=== PATIENT | female | born 1980 | race Caucasian/White ===

== ENCOUNTER 2020-09-14 20:34 | Emergency (ER) | payer SELFPAY ==
--- OUTSIDE RECORDS SUMMARY | 2020-09-14 20:37 | XMS REPORT | Continuity of Care Document ---
:1980 Author Organization [facility] t Address [address] [place] [address] Dr. Butler [address] [place] [address] Care Team Providers Name Role Phone Provider, Urgent Care Attending Clinician Unavailable Doctor Unassigned, Name Attending Clinician Unavailable Problems This patient has no known problems. Allergies, Adverse Reactions, Alerts This patient has no known allergies or adverse reactions. Medications This patient has no known medications. Procedures This patient has no known procedures. Encounters Start End Encounter Admission Attending Care Care Encounter Source Date/Time Date/Time Type Type Clinicians Facility Department ID 2020-08-30 2020-08-30 Urgent Provider, [facility] [id number] 20:20:43 21:04:22 Care [facility] [id number] Care [place] [id number] Ever [id number] nal 0[address] 2020-08-30 2020-08-30 Orders Doctor ARACELI [id number] 30 00:00:00 00:00:00 Only Unassigned, BUCK [id number] [place] [facility] [id number] Results This patient has no known results.
--- NOTE | 2020-09-14 21:50 | ER ---
Nurse's Notes [facility] Name: Nancy Lang Age: 39 yrs Sex: Female : 1980 Arrival Date: 09/14/2020 Time: 20:36 Bed 29 Private MD: Diagnosis: Urticaria, unspecified;Rash and other nonspecific skin eruption Presentation: 09/14 20:48 Chief complaint: Patient states: Hives all over, noticed around 1700 today. Denies ca1 difficulty breathing, denies difficulty swallowing. Benadryl taken at 1800. Coronavirus screen: Client denies travel out of the [place] in the last 14 days. cough unrelated to allergies, Client presents with at least one sign or symptom that may indicate coronavirus-19. Standard/surgical mask placed on the client. Provider contacted for isolation considerations. Ebola Screen: Patient negative for fever greater than or equal to 101.5 degrees Fahrenheit, and additional compatible Ebola Virus Disease symptoms Patient denies exposure to infectious person. Patient denies travel to an Ebola-affected area in the 21 days before illness onset. No symptoms or risks identified at this time. Initial Sepsis Screen: Does the patient meet any 2 criteria? No. Patient's initial sepsis screen is negative. Does the patient have a suspected source of infection? No. Patient's initial sepsis screen is negative. Risk Assessment: Do you want to hurt yourself or someone else? Patient reports no desire to harm self or others. Onset of symptoms was September 14, 2020 at 17:00. 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 Flu vaccine is not up to date. - Social history:: Smoking status: Patient denies any tobacco usage or history of. Screenin:40 Abuse screen: Denies threats or abuse. Denies injuries from another. Nutritional ca1 screening: No deficits noted. Tuberculosis screening: No symptoms or risk factors identified. Fall Risk None identified. Assessment: 21:40 General: Appears in no apparent distress. comfortable, Behavior is calm, cooperative, ca1 appropriate for age. Pain: Denies pain. Neuro: Level of Consciousness is awake, alert, obeys commands, Oriented to person, place, time, situation. Respiratory: Airway is patent Respiratory effort is even, unlabored, Respiratory pattern is regular, symmetrical, Breath sounds are clear bilaterally. Derm: Skin is intact, is healthy with good turgor, Skin is pink, warm \T\ dry. Rash noted that is urticaria, on back, buttocks, chest and abdomen. Musculoskeletal: Circulation, motion, and sensation intact. Capillary refill < 3 seconds. Vital Signs: 20:48 BP 173 / 107; Pulse 98; Resp 14; Temp 98.1; Pulse Ox 99% on R/A; Weight 111.13 kg (R); ca1 Height 5 ft. 6 in. (167.64 cm) (R); Pain 0/10; 20:48 Body Mass Index 39.54 (111.13 kg, 167.64 cm) ca1 ED Course: 20:36 Patient arrived in ED. cf2 20:52 Triage completed. ca1 20:52 Arm band placed on right wrist. ca1 21:29 Dillon Martin MD is Attending Physician. susu 21:40 Nori Ricardo, GABRIELA is Primary Nurse. ca1 21:40 Patient has correct armband on for positive identification. ca1 21:40 No provider procedures requiring assistance completed. Patient did not have IV access ca1 during this emergency room visit. Administered Medications: 21:35 Drug: Pepcid (famotidine) 40 mg Route: PO; ca1 22:12 Follow up: Response: No adverse reaction em 21:36 Drug: predniSONE 60 mg Route: PO; ca1 22:12 Follow up: Response: No adverse reaction em 21:40 Drug: Benadryl (diphenhydrAMINE) 50 mg Route: IM; Site: right gluteus; ca1 22:12 Follow up: Response: No adverse reaction em Outcome: 21:50 Discharge ordered by . susu 22:13 Discharged to home ambulatory. em 22:13 Condition: good 22:13 Discharge instructions given to patient, Instructed on discharge instructions, follow up and referral plans. medication usage, Demonstrated understanding of instructions, follow-up care, medications, Prescriptions given X 4. 22:13 Patient left the ED. em Signatures: Dillon Martin MD MD cha Munoz, Edgar, RN RN em Nori Ricardo RN RN ca1 [place] 2 Corrections: (The following items were deleted from the chart) 20:52 20:52 PSHx: None; ca1 ca1
--- NOTE | 2020-09-14 21:51 | EDPHYS ---
Physician Documentation [facility] Name: Nancy Lang Age: 39 yrs Sex: Female : 1980 Arrival Date: 09/14/2020 Time: 20:36 Bed 29 Private MD: ED Physician Dillon Martin HPI: 09/14 21:44 This 39 yrs old Female presents to ER via Ambulatory with complaints of susu Allergic Reaction. 21:44 The patient presents with rash, redness of skin. Onset: The symptoms/episode susu began/occurred today. Associated signs and symptoms: Pertinent positives: hives. Possible causes: The patient has no known obvious cause for the symptoms. At home the patient or guardian has treated the symptoms with nothing. Severity of symptoms: At their worst the symptoms were mild moderate in the emergency department the symptoms have improved mildly. The patient has not experienced similar symptoms in the past. 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 Flu vaccine is not up to date. - Social history:: Smoking status: Patient denies any tobacco usage or history of. ROS: 21:46 Constitutional: Negative for fever, chills, and weight loss, Eyes: Negative for injury, susu pain, redness, and discharge, ENT: Negative for injury, pain, and discharge, Neck: Negative for injury, pain, and swelling, Cardiovascular: Negative for chest pain, palpitations, and edema, Respiratory: Negative for shortness of breath, cough, wheezing, and pleuritic chest pain, Abdomen/GI: Negative for abdominal pain, nausea, vomiting, diarrhea, and constipation, Back: Negative for injury and pain, : Negative for injury, bleeding, discharge, and swelling, MS/Extremity: Negative for injury and deformity, Neuro: Negative for headache, weakness, numbness, tingling, and seizure, Psych: Negative for depression, anxiety, suicide ideation, homicidal ideation, and hallucinations, Allergy/Immunology: Negative for hives, rash, and allergies, Endocrine: Negative for neck swelling, polydipsia, polyuria, polyphagia, and marked weight changes, Hematologic/Lymphatic: Negative for swollen nodes, abnormal bleeding, and unusual bruising. 21:46 Skin: Positive for rash. Exam: 21:46 Constitutional: This is a well developed, well nourished patient who is awake, alert, susu and in no acute distress. Head/Face: Normocephalic, atraumatic. Eyes: Pupils equal round and reactive to light, extra-ocular motions intact. Lids and lashes normal. Conjunctiva and sclera are non-icteric and not injected. Cornea within normal limits. Periorbital areas with no swelling, redness, or edema. ENT: Nares patent. No nasal discharge, no septal abnormalities noted. Tympanic membranes are normal and external auditory canals are clear. Oropharynx with no redness, swelling, or masses, exudates, or evidence of obstruction, uvula midline. Mucous membranes moist. Neck: Trachea midline, no thyromegaly or masses palpated, and no cervical lymphadenopathy. Supple, full range of motion without nuchal rigidity, or vertebral point tenderness. No Meningismus. Chest/axilla: Normal chest wall appearance and motion. Nontender with no deformity. No lesions are appreciated. Cardiovascular: Regular rate and rhythm with a normal S1 and S2. No gallops, murmurs, or rubs. Normal PMI, no JVD. No pulse deficits. Respiratory: Lungs have equal breath sounds bilaterally, clear to auscultation and percussion. No rales, rhonchi or wheezes noted. No increased work of breathing, no retractions or nasal flaring. Abdomen/GI: Soft, non-tender, with normal bowel sounds. No distension or tympany. No guarding or rebound. No evidence of tenderness throughout. Back: No spinal tenderness. No costovertebral tenderness. Full range of motion. Female : Normal external genitalia. MS/ Extremity: Pulses equal, no cyanosis. Neurovascular intact. Full, normal range of motion. Neuro: Awake and alert, GCS 15, oriented to person, place, time, and situation. Cranial nerves II-XII grossly intact. Motor strength 5/5 in all extremities. Sensory grossly intact. Cerebellar exam normal. Normal gait. Psych: Awake, alert, with orientation to person, place and time. Behavior, mood, and affect are within normal limits. 21:46 Skin: Appearance: Color: normal in color, pink, Temperature: normal temperature, warm, Moisture: normal moisture, petechiae, not noted, ecchymosis, not noted, flushing, not noted, diaphoresis is not appreciated, swelling, is not appreciated. Vital Signs: 20:48 BP 173 / 107; Pulse 98; Resp 14; Temp 98.1; Pulse Ox 99% on R/A; Weight 111.13 kg (R); ca1 Height 5 ft. 6 in. (167.64 cm) (R); Pain 0/10; 20:48 Body Mass Index 39.54 (111.13 kg, 167.64 cm) ca1 MDM: 21:37 Patient medically screened. susu 21:47 Differential diagnosis: anaphylaxis, angioedema, urticaria. Data reviewed: vital signs, susu nurses notes. Data interpreted: custodial services manager: not applicable for this patient encounter. rate is 98 beats/min, rhythm is regular, Pulse oximetry: on room air is 99 %. Test interpretation: by ED physician or midlevel provider:. Counseling: I had a detailed discussion with the patient and/or guardian regarding: the historical points, exam findings, and any diagnostic results supporting the discharge/admit diagnosis, the need for outpatient follow up, for definitive care, an allergy/senior medical billing specialist, a family practitioner. Administered Medications: 21:35 Drug: Pepcid (famotidine) 40 mg Route: PO; ca1 22:12 Follow up: Response: No adverse reaction em 21:36 Drug: predniSONE 60 mg Route: PO; ca1 22:12 Follow up: Response: No adverse reaction em 21:40 Drug: Benadryl (diphenhydrAMINE) 50 mg Route: IM; Site: right gluteus; ca1 22:12 Follow up: Response: No adverse reaction em Disposition Summary: 09/14/20 21:50 Discharge Ordered Location: Home susu Problem: new susu Symptoms: have improved susu Condition: Stable susu Diagnosis - Urticaria, unspecified susu - Rash and other nonspecific skin eruption susu Followup: susu - With: Private Physician - When: 2 - 3 days - Reason: Recheck today's complaints, Continuance of care, Re-evaluation by your physician Discharge Instructions: - Discharge Summary Sheet susu - Hives susu - Rash, Adult susu - Rash, Adult, [id number] susu - Allergies, Adult, [id number] susu Forms: - Medication Reconciliation Form susu - Thank You Letter susu - Antibiotic Education [facility] - Prescription Opioid Use [facility] Prescriptions: - EpiPen 0.3 mg/0.3 mL Injection auto-injector - inject 0.3 milliliter by INTRAMUSCULAR route as directed as needed for susu anaphylaxis; 2 Cartridge; Refills: 0, Product Selection Permitted - Benadryl 25 mg Oral Capsule - take 2 capsule by ORAL route every 6 hours As needed; 50 tablet; Refills: 0, [facility] Product Selection Permitted - Pepcid 20 mg Oral Tablet - take 1 tablet by ORAL route every 12 hours for 15 days; 30 tablet; Refills: 0, [facility] Product Selection Permitted - Prednisone 20 mg Oral Tablet - take 2 tablets by ORAL route once daily for 5 days; 10 tablet; Refills: 0, [facility] Product Selection Permitted Signatures: Dillon Martin MD MD [facility] Nori Ricardo RN RN ca1 Juvencio Centeno RN em Corrections: (The following items were deleted from the chart) 20:52 20:52 PSHx: None; ca1 ca1
[2020-09-14] MEDS ORDERED: predniSONE 20 MG TAB ONE (21:55)
[2020-09-14] MEDS ORDERED: DIPHENHYDRAMINE 50 MG/ML VIAL ONE (21:55)
[2020-09-14] MEDS ORDERED: FAMOTIDINE 20 MG TAB ONE (21:56)
[2020-09-14 22:44] VITALS: BP 173/107; TEMP 98.1; O2SAT 99
== END 2020-09-14 22:13 | disposition home or self-care (01) ==
LOC: ER 20:34
DX: L50.9 Urticaria, unspecified (principal)
CPT/HCPCS: 96372; 99283; J1200; J7512

== ENCOUNTER 2020-09-24 09:42 | Emergency (ER) | payer SELFPAY ==
--- OUTSIDE RECORDS SUMMARY | 2020-09-24 09:44 | XMS REPORT | Continuity of Care Document ---
:1980 Author Organization [facility] t Address [address] [place] [address] Dr. Butler [address] [place] [address] Care Team Providers Name Role Phone Provider, [...] Facility Department ID 2020-08-30 2020-08-30 Urgent Provider, [facility] [id number] 20:20:43 21:04:22 Care [facility] [id number] Care [place] [id number] Ever [id number] nal [address] 2020-08-30 2020-08-30 Orders Doctor ARACELI [id number] 00:00:00 00:00:00 Only UnassignedBUCK [id number] [facility] [id number] Results This patient has no known results.
[2020-09-24 10:31] LABS: Urine Blood 2+ (Negative); Urine Glucose Negative (Negative); Urine Protein Negative (Negative); Urine Specific Gravity <=1.005 (1.005-1.030); Urine pH 6.5 (5.0-7.0)
[2020-09-24] MEDS ORDERED: Ringers Lactate 1,000 ML IV ONE (11:48)
[2020-09-24 13:28] LABS: Absolute Lymphocytes (CBC) 1.8 K/uL (0.7-4.9); Basophils % 0.9 % (0-1.3); Hematocrit 41.3 % (36.0-45.0); Lymphocytes % 19.1 % (15.3-44.8); MPV 9.3 fL (7.6-11.3); RBC Red Blood Cell Count 4.69 M/uL (3.86-4.86)
[2020-09-24 16:15] LABS: Protime INR 1.01
[2020-09-24] MEDS ORDERED: LORAZEPAM 1 MG TABLET ONE (17:52)
--- NOTE | 2020-09-24 20:53 | ER ---
Nurse's Notes [facility] Name: Nancy Lang Age: 39 yrs Sex: Female : 1980 Arrival Date: 09/24/2020 Time: 09:43 Bed 16 Private MD: Diagnosis: Chest pain, unspecified;Upper abdominal pain, unspecified;Other specified anxiety disorders Presentation: 09/24 09:48 Chief complaint: Epigastric pressure that radiates to mid chest and hot flashes since hb this morning. Denies SOB/nausea. Coronavirus screen: At this time, the client does not indicate any symptoms associated with coronavirus-19. Ebola Screen: No symptoms or risks identified at this time. Initial Sepsis Screen: Does the patient meet any 2 criteria? No. Patient's initial sepsis screen is negative. Does the patient have a suspected source of infection? No. Patient's initial sepsis screen is negative. Risk Assessment: Do you want to hurt yourself or someone else? Patient reports no desire to harm self or others. Onset of symptoms was September 24, 2020. 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 - Social history:: Smoking status: Patient denies any tobacco usage or history of. Screenin:46 Abuse screen: Denies threats or abuse. Nutritional screening: No deficits noted. tw2 Tuberculosis screening: No symptoms or risk factors identified. Fall Risk None identified. Assessment: 10:20 General: Appears in no apparent distress. well groomed, Behavior is anxious, Reports "i tw2 just lost my dad and I am having a lot fo stress" , pt tearful at this time. pt encouraged at this time. pt redirectable. Pain: Complains of pain in epigastric area Pain does not radiate. Pain began n/a. Neuro: Level of Consciousness is awake, alert, obeys commands, Oriented to person, place, time, situation. Cardiovascular: Capillary refill < 3 seconds Patient's skin is warm and dry. Respiratory: Airway is patent Respiratory effort is even, unlabored, Respiratory pattern is regular, symmetrical. GI: No signs and/or symptoms were reported involving the gastrointestinal system. : No signs and/or symptoms were reported regarding the genitourinary system. EENT: No signs and/or symptoms were reported regarding the EENT system. Derm: No signs and/or symptoms reported regarding the dermatologic system. Musculoskeletal: Range of motion:. 11:24 Reassessment: provider at bedside at this time. tw2 11:30 Reassessment: Patient appears in no apparent distress at this time. Patient and/or tw2 family updated on plan of care and expected duration. Pain level reassessed. Patient is alert, oriented x 3, equal unlabored respirations, skin warm/dry/pink. 13:43 Reassessment: Patient appears in no apparent distress at this time. Patient and/or tw2 family updated on plan of care and expected duration. Pain level reassessed. Patient is alert, oriented x 3, equal unlabored respirations, skin warm/dry/pink. 17:10 Reassessment: pt refusing serum blood work as iv would not flush. pt states tw2 "theres absolutely no way i could be ", provider notified. 17:26 Reassessment: provider at bedside at this time. tw2 19:14 Reassessment: Patient appears in no apparent distress at this time. Patient and/or jb4 family updated on plan of care and expected duration. Pain level reassessed. Patient is alert, oriented x 3, equal unlabored respirations, skin warm/dry/pink. Pt is peacefully laying in bed talking on the phone. Denies having any needs at this time. 20:16 Reassessment: Patient appears in no apparent distress at this time. Patient and/or jb4 family updated on plan of care and expected duration. Pain level reassessed. Patient is alert, oriented x 3, equal unlabored respirations, skin warm/dry/pink. 21:09 Reassessment: Patient appears in no apparent distress at this time. Patient and/or jb4 family updated on plan of care and expected duration. Pain level reassessed. Patient is alert, oriented x 3, equal unlabored respirations, skin warm/dry/pink. Vital Signs: 09:48 BP 153 / 92; Pulse 88; Resp 16; Temp 97.6; Pulse Ox 100% on R/A; Weight 102.06 kg; hb Height 5 ft. 6 in. (167.64 cm); Pain 2/10; 11:30 BP 124 / 71; Pulse 63; Resp 17; Pulse Ox 100% on R/A; tw2 13:43 BP 124 / 61; Pulse 63; Resp 17; Pulse Ox 99% on R/A; tw2 17:27 BP 151 / 90; Pulse 66; Resp 17; Pulse Ox 100% on R/A; tw2 20:16 BP 129 / 82; Pulse 69; Resp 16; Pulse Ox 100% on R/A; jb4 09:48 Body Mass Index 36.32 (102.06 kg, 167.64 cm) hb ED Course: 09:43 Patient arrived in ED. ds1 09:50 Triage completed. hb 09:50 Arm band placed on. hb 09:52 Dev Gupta PA is PHCP. [facility] 09:53 Dillon Martin MD is Attending Physician. jmm 09:55 Susan Tobin, GABRIELA is Primary Nurse. tw2 09:55 Bed in low position. Call light in reach. equipment monitor phototypesetting on. Pulse ox on. NIBP on. tw2 09:59 Patient maintains SpO2 saturation greater than 95% on room air. tw2 10:20 Inserted saline lock: 20 gauge in right antecubital area, using aseptic technique. tw2 11:39 D-Dimer Sent. tw2 17:12 IV discontinued, intact, bleeding controlled, No redness/swelling at site. Pressure tw2 dressing applied. 17:33 Awaiting lab results. tw2 17:57 PHCP role handed off by Dev Gupta PA kb 17:57 Verónica Thorne FNP-C is PHCP. kb 21:09 No provider procedures requiring assistance completed. jb4 Administered Medications: 11:29 Drug: Lactated Ringers Solution 1000 ml Route: IV; Rate: 1000 bolus; Site: left tw2 antecubital; 13:46 Follow up: Response: No adverse reaction; IV Status: Completed infusion; IV Intake: tw2 1000ml 17:33 Drug: Ativan (LORazepam) 1 mg Route: PO; tw2 19:05 Follow up: Response: No adverse reaction; Anxiety decreased tw2 Intake: 13:46 IV: 1000ml; Total: 1000ml. tw2 Outcome: 20:52 Discharge ordered by MD. rivero 21:09 Discharged to home ambulatory. jb4 21:09 Condition: stable 21:09 Discharge instructions given to patient, Instructed on discharge instructions, follow up and referral plans. medication usage, Demonstrated understanding of instructions, follow-up care, medications, Prescriptions given X 1. 21:09 Patient left the ED. jb4 Signatures: Verónica Thorne, RASHEED BRIGHT-Dev Melendez PA PA Lucero Rodriguez ds1 Lauryn Sosa, RN RN hb Susan Tobin RN RN tw2 Ry Obregon, RN RN jb4 Corrections: (The following items were deleted from the chart) 10:34 09:59 Inserted saline lock: 20 gauge in right antecubital area, using aseptic tw2 technique. tw2
--- NOTE | 2020-09-24 20:53 | EDPHYS ---
Physician Documentation [facility] Name: Nancy Lang Age: 39 yrs Sex: Female : 1980 Arrival Date: 09/24/2020 Time: 09:43 Bed 16 Private MD: STACY Physician Dillon Martin HPI: 09/24 09:56 This 39 yrs old Female presents to ER via Ambulatory with complaints of Chest jmm Pain. 09:56 The patient or guardian reports chest pain that is located primarily in the substernal jmm area, epigastric area. The pain radiates to. Associated signs and symptoms: Pertinent negatives: fever. Is a 39-year-old female with no chronic conditions presents emerged part with complaints of epigastric pain which radiates into the chest. Patient describes it as chest pressure. Denies shortness of breath, vomiting, fever, diarrhea.. 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 - Social history:: Smoking status: Patient denies any tobacco usage or history of. ROS: 09:56 Constitutional: Negative for fever, chills, and weight loss, Respiratory: Negative for jmm shortness of breath, cough, wheezing, and pleuritic chest pain. 09:56 Cardiovascular: Positive for chest pain. 09:56 All other systems are negative. Exam: 09:56 Constitutional: This is a well developed, well nourished patient who is awake, alert, jmm and in no acute distress. Head/Face: atraumatic. Eyes: EOMI, no conjunctival erythema appreciated ENT: Moist Mucus Membranes Neck: Trachea midline, Supple Chest/axilla: Normal chest wall appearance and motion. Cardiovascular: Regular rate and rhythm. No edema appreciated Respiratory: Normal respirations, no respiratory distress appreciated Abdomen/GI: Non distended, soft Back: Normal ROM Skin: General appearance color normal MS/ Extremity: Moves all extremities, no obvious deformities appreciated, no edema noted to the lower extremities Neuro: Awake and alert, normal gait Psych: Behavior is normal, Mood is normal, Patient is cooperative and pleasant Vital Signs: 09:48 BP 153 / 92; Pulse 88; Resp 16; Temp 97.6; Pulse Ox 100% on R/A; Weight 102.06 kg; hb Height 5 ft. 6 in. (167.64 cm); Pain 2/10; 11:30 BP 124 / 71; Pulse 63; Resp 17; Pulse Ox 100% on R/A; tw2 13:43 BP 124 / 61; Pulse 63; Resp 17; Pulse Ox 99% on R/A; tw2 17:27 BP 151 / 90; Pulse 66; Resp 17; Pulse Ox 100% on R/A; tw2 20:16 BP 129 / 82; Pulse 69; Resp 16; Pulse Ox 100% on R/A; jb4 09:48 Body Mass Index 36.32 (102.06 kg, 167.64 cm) hb MDM: 09:56 Patient medically screened. susu 20:52 Data reviewed: vital signs, nurses notes. Data interpreted: Pulse oximetry: on room air kb is 100 %. Interpretation: normal. Counseling: I had a detailed discussion with the patient and/or guardian regarding: the historical points, exam findings, and any diagnostic results supporting the discharge/admit diagnosis, lab results, radiology results, the need for outpatient follow up, a family practitioner, to return to the emergency department if symptoms worsen or persist or if there are any questions or concerns that arise at home. 09/24 10:00 Order name: Basic Metabolic Panel [facility] 09/24 10:20 Order name: CBC with Diff [facility] 09/24 10:20 Order name: LFT's [facility] 09/24 10:20 Order name: Magnesium [facility] 09/24 10:00 Order name: EKG; Complete Time: 10:[address] [facility] 09/24 10:00 Order name: Cardiac monitoring; Complete Time: 10:[address] [facility] 09/24 10:00 Order name: EKG - Nurse/Tech; Complete Time: 12:[address] [facility] 09/24 10:20 Order name: NT PRO-BNP [facility] 09/24 10:20 Order name: PT-INR; Complete Time: 16:22 [facility] 09/24 10:20 Order name: Troponin (emerg Dept Use Only) [facility] 09/24 10:20 Order name: Lipase [facility] 09/24 10:20 Order name: CBC with Automated Diff; Complete Time: 13:40 [facility] 09/24 10:20 Order name: Liver (Hepatic) Function [facility] 09/24 10:31 Order name: Urine Dipstick-Ancillary; Complete Time: 10:34 [facility] 09/24 11:29 Order name: D-Dimer; Complete Time: 13:40 [facility] 09/24 10:00 Order name: IV Saline Lock; Complete Time: 10:[address] [facility] 09/24 10:00 Order name: Labs collected and sent; Complete Time: 10:[address] [facility] 09/24 10:00 Order name: O2 Per Protocol; Complete Time: 10:00 tw2 09/24 10:00 Order name: O2 Sat Monitoring; Complete Time: 10:00 tw2 Administered Medications: 11:29 Drug: Lactated Ringers Solution 1000 ml Route: IV; Rate: 1000 bolus; Site: left tw2 antecubital; 13:46 Follow up: Response: No adverse reaction; IV Status: Completed infusion; IV Intake: tw2 1000ml 17:33 Drug: Ativan (LORazepam) 1 mg Route: PO; tw2 19:05 Follow up: Response: No adverse reaction; Anxiety decreased tw2 Disposition: 09/25 09:02 Co-signature as Attending Physician, Dillon Martin MD I agree with the assessment and susu plan of care. Disposition Summary: 09/24/20 20:52 Discharge Ordered Location: Home kb Condition: Stable kb Diagnosis - Chest pain, unspecified kb - Upper abdominal pain, unspecified kb - Other specified anxiety disorders kb Followup: jmm - With: Private Physician - When: 2 - 3 days - Reason: Recheck today's complaints, Continuance of care, Re-evaluation by your physician Discharge Instructions: - Discharge Summary Sheet jmm - Nonspecific Chest Pain, Adult jmm - Generalized Anxiety Disorder, Adult [facility] Forms: - Medication Reconciliation Form kb - Thank You Letter kb - Antibiotic Education kb - Prescription Opioid Use kb - Work release form eb Prescriptions: - Hydroxyzine HCl 25 mg Oral Tablet - take 1 tablet by ORAL route every 6 hours As needed; 30 tablet; Refills: 0, jmm Product Selection Permitted Signatures: Dispatcher [employer] Verónica Gustafson, KAILA-C KAILA-Dillon Tellez MD MD cha Mickail, Joel, PA PA m Lauryn Sosa, RN RN hb Susan Tobin RN RN tw2 Corrections: (The following items were deleted from the chart) 09/24 10:07 10:01 Basic Metabolic Panel ordered. EDMS EDMS 10:07 10:01 CBC+H.LAB.BRZ ordered. EDMS EDMS 10:08 10:01 HEPATIC FUNCTION+C.LAB.BRZ ordered. EDMS EDMS 10:08 10:01 MAGNESIUM+C.LAB.BRZ ordered. EDMS EDMS 10:08 10:01 PROBNP+C.LAB.BRZ ordered. EDMS EDMS 10:08 10:01 PROTIME (+INR)+COAG.LAB.BRZ ordered. EDMS EDMS 10:08 10:01 TROPONIN (EMERG DEPT USE ONLY)+C.LAB.BRZ ordered. EDMS EDMS 10:08 10:01 LACTATE+C.LAB.BRZ ordered. EDMS EDMS 10:08 10:01 PCT+C.LAB.BRZ ordered. EDMS EDMS 10:08 10:01 BLOOD CULTURE*+BA.LAB.BRZ ordered. EDMS EDMS 10:34 10:21 Abdomen Limited+US.RAD.BRZ ordered. EDMS EDMS 11:19 10:01 Chest Single View+RAD.RAD.BRZ ordered. EDMS EDMS
[2020-09-24 21:34] VITALS: TEMP 97.6
[2020-09-24 21:41] VITALS: O2SAT 100
[2020-09-24 21:43] VITALS: BP 129/82
[2020-09-25 11:13] LABS: Albumin 4.3; Bilirubin Total 1.3; Protein, Total 7.5
[2020-09-25 11:14] LABS: Magnesium 2.3; Troponin (Emerg Dept Use Only) 0.004
== END 2020-09-24 21:09 | disposition home or self-care (01) ==
LOC: ER 09:42
DX: R10.13 Epigastric pain (principal); F41.8 Other specified anxiety disorders
CPT/HCPCS: 36415; 80076; 81003; 83690; 83735; 83880; 84484; 85025; 85379; 85610; 93005; 96360; 96361; 99285; J7120